=== PATIENT | female | born 1980 | race Caucasian/White ===

== ENCOUNTER 2017-06-24 01:12 | Inpatient (IN) | payer OTHER, SELFPAY ==
[2017-06-24 01:17] VITALS: BMI 25.9
[2017-06-24] MEDS: Oxytocin 10 UNITS/ML Vial IM (01:35)
--- NOTE | 2017-06-24 02:12 | PCM.HP.OB ---
(1) Rh negative state in antepartum period Status: Acute Comment: received rhogam (2) Anemia affecting Status: Acute Qualifiers: (3) Supervision of with history of infertility Status: Acute Comment: DWIGHT 07/02/17 boy BECKY Arita Syd, Chapo (4) Active labor at term Status: Acute History Date of Admission: 06/24/17 Gestational age: 38.6 History of this : 37-year-old at 38 weeks 6 days presents in active labor and delivers precipitously. She has had an uncomplicated other than being AMA and Rh-. She had some mild anemia and was on iron in the . Pertinent Past Medical History: Past medical history: Abnormal Pap, infertility Past surgical history: [place] teeth OB history: 2 previous term vaginal deliveries uncomplicated labs: RPR nonreactive hep B negative blood type Rh- antibody screen negative rubella immune Allergies erythromycin base [Erythromycin Base] Allergy (Verified 06/23/17 15:39) Unknown Penicillins Allergy (Verified 06/23/17 15:39) Unknown Current Medications Acetaminophen (Tylenol) 325 - 650 mg PO Q4H PRN PRN PRN Reason: PAIN OR FEVER >100.4F Al Hydroxide/Mg Hydroxide (Mylanta Ii) 15 - 30 ml PO Q4H PRN PRN PRN Reason: INDIGESTION Citric Acid/Sodium Citrate (Bicitra) 30 ml PO UD PRN Lactated Ringer's () 1,000 mls @ 50 mls/hr IV .Q20H CESARIO Nalbuphine HCl (Nubain) 5 - 10 mg IV Q3H PRN PRN PRN Reason: PAIN (4-10/10) Ondansetron HCl (Zofran) 4 mg IV Q8H PRN PRN PRN Reason: NAUSEA Promethazine HCl (Phenergan (Ll)) 6.25 - 12.5 mg IV Q4H PRN PRN; Protocol PRN Reason: IF NAUSEA PERSISTS Sodium Chloride () 5 - 15 ml IV UD CESARIO Smoking Status: Never smoker Alcohol: None Drug Use: none Number of Fetus(es): 1 - heart tone 140s moderate variability reactive no decelerations category 1 tracing Review of Systems Constitutional: Denies: Chills, Fever, Weight Change HEENT: Denies: Head Aches, Sinus Congestion, Sinus Drainage Cardiovascular: Denies: Chest Pain, Palpitations Respiratory: Denies: Cough, Shortness of breath at rest, Sputum production Gastrointestinal: Reports: Abdominal Pain Gynecological: Reports: Vaginal discharge Physical Exam General: Alert, Oriented x3, No apparent distress Cardiovascular: Regular rate Lungs: Normal air movement Abdomen: Soft, Gravid, Appropriate for Gestational Age Extremities:: No edema Estimated gestational size: Appropriate for gestational size Presentation: Cephalic Cervix Dilation (cm): 9 Station: -1 Effacement (%): 100 Assessment/Plan Active and Suspected Problems (Last Reviewed 06/23/17 @ 15:40 by Tete Brennan) Active labor at term (Acute) 37-year-old presents in active labor and delivers precipitously. GBS negative. Uncomplicated delivery.
--- NOTE | 2017-06-24 02:19 | PCM.OB.VAG ---
(1) Rh negative state in antepartum period Status: Acute Comment: received rhogam (2) Anemia affecting Status: Acute Qualifiers: (3) Supervision of with history of infertility Status: Acute Comment: DWIGHT 07/02/17 boy Syd Pennington, Chapo (4) Active labor at term Status: Acute Vaginal Delivery Maternal Presentation: Active Labor 37-year-old at 38 weeks 6 days presents in active labor and delivers precipitously uncomplicated Amniotic Membrane Rupture Type: Spontaneous at home Amniotic Fluid Description: Clear Final DWIGHT: 07/02/17 Gestational age: 38 Weeks and 6 Days Date of Procedure: 06/24/17 Pre-Operative Diagnosis: In active labor Post-Operative Diagnosis: Same Surgery/ Procedure Performed: Spontaneous Vaginal Delivery Type of Anesthesia: Pudendal block with 1% lidocaine Description of Procedure: Patient presented in active labor and was 9 cm dilated a pudendal block was placed bilaterally by injecting 1 cm medial and posterior to the initial spines bilaterally 10 cc of 1% lidocaine without complication. Patient began pushing and delivered the head in the SHAD presentation. The head was delivered atraumatically . The anterior and posterior shoulders delivered without complication followed by the rest of the and the was placed on the maternal abdomen. Delayed cord clamping was employed for approximately 60 seconds. Cord was clamped and cut and gentle traction was applied to the cord and the placenta delivered spontaneously immediately following it was noted to be intact with three-vessel cord. The perineum and vagina were inspected and noted to have no laceration. EBL was 300 cc. Patient and infant tolerated delivery well. Presentation: SHAD Placental Delivery Description: Spontaneous Placenta Disposition: [facility] Cord Vessel Description: 3 Vessels Cord Entanglement: None Estimated Blood Loss: 300 cc Infant A gender: Male Episiotomy Description: None Laceration: None Medications given after delivery: IV Pitocin
--- NOTE | 2017-06-24 02:28 | PCM.DCVAG ---
Discharge Diet: No Restrictions Discharge Activity: Return to Normal Activity, May not drive while taking narcotic pain medications., May Shower May resume sexual activity in: 4-6 weeks Additional Activity Instructions:: Nothing in the vagina for 4-6 weeks. You may return to work/school in 6 weeks. Call your doctor if your incision/area has: Continuous Slow Oozing, Sudden Increased Bleeding, Increased Pain/ Swelling, Increased Redness, Foul Smelling Discharge Additional Instructions: If you experience any of the following, contact your healthcare provider. Bleeding that soaks a pad every hour for 2 hours Fever 100.4 or higher Unrelieved incision or abdominal pain Swelling, redness, discharge or bleeding from your incision or episiotomy site Your incision begins to separate Problems urinating (including inability to urinate or burning while urinating). Visual changes Severe headache Flu-like symptoms Pain or redness in one of both of your breasts Pain, warmth, tenderness or swelling in your legs, especially the calf area Frequent nausea and vomiting Symptoms of depression or anxiety If you experience any of the following, call 911 or go to the nearest Emergency Room. Chest pain Problems breathing Seizure activity Partial or complete paralysis of a body part, slurred speech, weakness or drooping of the face, or a sudden inability to walk or hold your balance Allergies/Adverse Reactions: Allergies erythromycin base [Erythromycin Base] Allergy (Verified 06/23/17 15:39) Unknown Penicillins Allergy (Verified 06/23/17 15:39) Unknown Medications to take at Discharge Epinephrine [Epi Pen] 0.3 mg IM X1 #2 syringe 01/04/14 vitamin,calcium,qfpsbnpm-lxyt-pcwdp acid tablet 1 tab PO QDAY 05/07/17 cyclobenzaprine 10 mg tablet 10 mg PO TID PRN #30 tab 05/08/17 Please Follow Up With: Saira Edmonds MD - [phone] When: Call to make an appointment with your doctor in 6 weeks. If you had elevated Blood Pressure or 4th degree laceration you will need to be seen in 2 weeks. Primary Care Physician: Don Shultz MD [Primary Care Provider] -
--- NOTE | 2017-06-24 02:29 | DCINST_ITS ---
Discharge Diet: No Restrictions Discharge Activity: Return to Normal Activity, May not drive while taking narcotic pain medications., May Shower May resume sexual activity in: 4-6 weeks Additional Activity Instructions:: Nothing in the vagina for 4-6 weeks. You may return to work/school in 6 weeks. Call your doctor if your incision/area has: Continuous Slow Oozing, Sudden Increased Bleeding, Increased Pain/ Swelling, Increased Redness, Foul Smelling Discharge Additional Instructions: If you experience any of the following, contact your healthcare provider. * Bleeding that soaks a pad every hour for 2 hours * Fever 100.4 or higher * Unrelieved incision or abdominal pain * Swelling, redness, discharge or bleeding from your incision or episiotomy site * Your incision begins to separate * Problems urinating (including inability to urinate or burning while urinating) . * Visual changes * Severe headache * Flu-like symptoms * Pain or redness in one of both of your breasts * Pain, warmth, tenderness or swelling in your legs, especially the calf area * Frequent nausea and vomiting * Symptoms of depression or anxiety If you experience any of the following, call 911 or go to the nearest Emergency Room. * Chest pain * Problems breathing * Seizure activity * Partial or complete paralysis of a body part, slurred speech, weakness or drooping of the face, or a sudden inability to walk or hold your balance Allergies/Adverse Reactions: Allergies erythromycin base [Erythromycin Base] Allergy (Verified 06/23/17 15:39) Unknown Penicillins Allergy (Verified 06/23/17 15:39) Unknown Medications to take at Discharge Epinephrine [Epi Pen] 0.3 mg IM X1 #2 syringe 01/04/14 vitamin,calcium,cekmpcbb-npkx-aofrb acid tablet 1 tab PO QDAY 05/07/17 cyclobenzaprine 10 mg tablet 10 mg PO TID PRN #30 tab 05/08/17 Please Follow Up With: Saira Edmonds MD - [phone] When: Call to make an appointment with your doctor in 6 weeks. If you had elevated Blood Pressure or 4th degree laceration you will need to be seen in 2 weeks. Primary Care Physician: Don Shultz MD [Primary Care Provider] -
[2017-06-24 03:35] VITALS: BP 121/66; PULSE 77; RESP 18; TEMP 37; O2SAT 97
[2017-06-24 07:21] LABS: Hematocrit 35.3 % (37-47); Hemoglobin 11.9 g/dl (12.0-15.0); Mean Corp Hgb Conc 33.7 g/gl (32-36); Mean Corpuscular Hgb 31.6 pg (27.0-32.0); Mean Corpuscular Volume 93.6 fL (81-99); Mean Platelet Vol. 11.7 fl (6.2-12.0); Platelet Count 147 K/mm3 (150-450); Red Blood Count 3.77 M/mm3 (4.2-5.4); White Blood Count 11.7 K/mm3 (4.4-11.0)
[2017-06-24 07:23] LABS: Scan Indicated on CBC? Y/N NO
[2017-06-24 08:34] VITALS: BP 125/71; PULSE 76; RESP 16; TEMP 37.2
[2017-06-24 12:47] VITALS: BP 119/70; PULSE 73; RESP 16; TEMP 37.1; O2SAT 97
[2017-06-24] MEDS: Prenatal Vits Tablet 1 TABLET PO (13:32)
[2017-06-24 16:00] VITALS: BP 116/74; PULSE 78; RESP 16; TEMP 37.2; O2SAT 97
--- NOTE | 2017-06-24 18:48 | PCM.PN.OB ---
Patient Problems: Active and Suspected Problems (Last Reviewed 06/23/17 @ 15:40 by Tete Brennan) Active labor at term (Acute) Subjective: doing well n ocomplaints - Physical Exam General: Alert, Oriented x3 Vital Signs Temp Pulse Resp BP Pulse Ox 98.9 F 78 16 116/74 97 06/24/17 16:00 06/24/17 16:00 06/24/17 16:00 06/24/17 16:00 06/24/17 16:00 Oxygen Delivery Method Room Air Weight: 161 lb Body Mass Index (BMI) 25.9 Laboratory Tests Past 24 Hrs 06/24/17 06/24/17 02:40 02:40 WBC 11.7 H RBC 3.77 L Hgb 11.9 L Hct 35.3 L MCV 93.6 MCH 31.6 MCHC 33.7 RDW 13.0 RDW Differential 44.0 H Plt Count 147 L MPV 11.7 Blood Type O NEGATIVE Antibody Screen NEGATIVE Assessment/Plan Active and Suspected Problems (Last Reviewed 06/23/17 @ 15:40 by Tete Brennan) Active labor at term (Acute) s/p routine care
[2017-06-24 20:23] VITALS: BP 124/70; PULSE 82; RESP 16; TEMP 37.3
[2017-06-24] MEDS: Senna/Docusate Sodium 1 Tablet PO (20:32)
[2017-06-25 01:10] VITALS: BP 116/71; PULSE 67; RESP 16; TEMP 36.8
[2017-06-25 07:39] VITALS: BP 121/76; PULSE 90; RESP 18; TEMP 37.1
[2017-06-25] MEDS: Prenatal Vits Tablet 1 TABLET PO (11:32)
[2017-06-25 13:24] VITALS: BP 115/75; PULSE 80; RESP 18; TEMP 37.3
--- NOTE | 2017-06-25 14:20 | NURSING ---
Mother verified infant ID bands prior to discharge.
== END 2017-06-25 14:25 | disposition home or self-care (01) | DRG 775 ==
LOC: WPOUT 01:13
PROVIDERS: Admitting Provider Obstetrics & Gynecology; Family Provider Family Medicine; PCP Family Medicine; Visit Provider Obstetrics & Gynecology
DX: O62.3 Precipitate labor (principal); O26.899 Other specified pregnancy related conditions, unspecified trimester; O99.02 Anemia complicating childbirth; Z67.91 Unspecified blood type, Rh negative; Z3A.39 39 weeks gestation of pregnancy; Z37.0 Single live birth
CPT/HCPCS: 59025; 59050; 85027; 86850; 86900; 99218; G0378

== ENCOUNTER → 2017-08-12 14:12 | Outpatient (CLI) | payer OTHER, SELFPAY ==
--- NOTE | 2017-08-12 14:14 | HPBI_ITS ---
MAMMOGRAPHY - BILATERAL DIAGNOSTIC REASON FOR EXAM: Female, 37 years old. 2 week history of bilateral axillary lumps. PERTINENT HISTORY: Grandmother with breast cancer. Aunt with breast cancer. TECHNIQUE: Digital bilateral breast zak (3D mammographic acquisition) in the CC and MLO projections. 2-D mediolateral oblique (MLO) and craniocaudad (CC) views of both breasts were obtained. CAD: Full Field Digital Mammography with Computer Added Detection was performed. COMPARISON: None. Baseline examination. FINDINGS: Breast Composition: The breasts are extremely dense, which lowers the sensitivity of mammography. There are no dominant masses or suspicious calcifications. Small bilateral axillary lymph nodes are seen. No other significant abnormalities are identified. BI/DIAG MAMM W/CAD, BILAT IMPRESSION: Negative diagnostic mammogram. With the patient's history of a palpable abnormality in the right axillary region, ultrasound is recommended. ASSESSMENT CATEGORY: BIRADS Category 0: Incomplete. Need additional imaging evaluation. A letter regarding these results will be sent to the patient by the facility within 30 days. Approximately 10% of breast cancers are not detected by mammography. A normal mammogram should not delay biopsy of a clinically suspicious abnormality. Electronically Signed: Castro Lechuga MD at 15:41 EDT Tel [phone], Service support ,
--- NOTE | 2017-08-12 14:17 | US_ITS ---
STUDY: ULTRASOUND BREAST - RIGHT REASON FOR EXAM: Female, 37 years old. Palpable lumps in the right axillary region. TECHNIQUE: Axial and longitudinal images of the RIGHT breast were performed with a high resolution ultrasound transducer. COMPARISON: Comparison is made with prior mammogram done earlier today. FINDINGS: RIGHT Breast: 2 benign-appearing axillary lymph nodes are seen. The largest measures 2.2 sides by 1.3 cm x 0.9 cm. There is also evidence of a 4 mm x 3 mm x 2 mm cyst in the right axilla. US/Breast Limited Unilateral IMPRESSION: Findings suggestive of O2 benign appearing right axillary lymph nodes and a small cyst. ASSESSMENT CATEGORY: BIRADS Category 2: Benign. A letter regarding these results will be sent to the patient by the facility within 30 days. Electronically Signed: Castro Lechuga MD at 8:46 EDT Tel [phone], Service support ,
== END ==
PROVIDERS: Family Provider Family Medicine; PCP Family Medicine; Visit Provider Obstetrics & Gynecology
DX: N63.10 Unspecified lump in the right breast, unspecified quadrant (principal); R22.33 Localized swelling, mass and lump, upper limb, bilateral; Z80.3 Family history of malignant neoplasm of breast
CPT/HCPCS: 76642; 77062; 77066; G0279

== ENCOUNTER → 2018-11-11 16:24 | Outpatient (CLI) | payer BC, SELFPAY ==
--- NOTE | 2018-11-11 16:29 | BI_ITS ---
MAMMOGRAPHY - BILATERAL SCREENING REASON FOR EXAM: Female, 38 years old. Routine annual screening examination. PERTINENT HISTORY: Aunt with breast cancer. TECHNIQUE: Digital bilateral breast henrik (3D mammographic acquisition) in the CC and MLO projections. 2-D mediolateral oblique (MLO) and craniocaudad (CC) views of both breasts were obtained. CAD: Full Field Digital Mammography with Computer Added Detection was performed. COMPARISON: Comparison is made with prior study dated August 12, 2017. FINDINGS: Breast Composition: The breasts are extremely dense, which lowers the sensitivity of mammography. There are no dominant masses or suspicious calcifications. No other significant abnormalities are identified. There has been no significant change since the prior study. BI/SCREEN MAMM (CAD) W/HENRIK BILAT IMPRESSION: Stable bilateral screening mammogram. Yearly follow-up mammogram recommended. (A) ASSESSMENT CATEGORY: BIRADS Category 1: Negative. A letter regarding these results will be sent to the patient by the facility within 30 days. Approximately 10% of breast cancers are not detected by mammography. A normal mammogram should not delay biopsy of a clinically suspicious abnormality. [id number] Electronically Signed: Castro Lechuga, at 8:29 EDT , Service support ,
== END ==
PROVIDERS: Family Provider Family Medicine; PCP Family Medicine; Referring Provider Family Medicine; Visit Provider Family Medicine
DX: Z12.31 Encounter for screening mammogram for malignant neoplasm of breast (principal); R59.0 Localized enlarged lymph nodes
CPT/HCPCS: 77063; 77067

== ENCOUNTER → 2019-11-25 13:59 | Outpatient (CLI) | payer OTHER, SELFPAY ==
--- NOTE | 2019-11-25 14:01 | BI_ITS ---
MAMMOGRAPHY - BILATERAL SCREENING 3-D TOMOSYNTHESIS REASON FOR EXAM: Female, 39 years old. Routine screening PERTINENT HISTORY: fm hx pat aunt 40''s, pat grot gma 60''s, -- 2018 RT AXILLARY LUMPS W/ US DONE=BENIGN LYMPH NODES. TECHNIQUE: 2-D mammograms and 3-D Tomosynthesis of the breast (s) were performed. CAD was performed. COMPARISON: 11/11/2018 FINDINGS: The breast composition is Extremely dense tissue. Scattered benign calcifications are seen. No dense spiculated masses or suspicious microcalcifications are identified. No architectural distortion is identified. There is no skin thickening or retraction. There has been no significant change since the prior study. BI/SCREEN MAMM (CAD) W/HENRIK BILAT IMPRESSION: No mammographic signs of malignancy. Routine yearly mammograms recommended. ASSESSMENT CATEGORY: BIRADS Category 2: Benign. A letter regarding these results will be sent to the patient by the facility within 30 days. FOLLOW UP RECOMMENDATION: Yearly follow up mammogram recommended. (A) Approximately 10% of breast cancers are not detected by mammography. A normal mammogram should not delay biopsy of a clinically suspicious abnormality. Electronically Signed: Wilfred Thompson MD at 14:44 EDT , Service support ,
== END ==
PROVIDERS: PCP Family Medicine; Referring Provider Obstetrics & Gynecology; Visit Provider Obstetrics & Gynecology
DX: Z12.31 Encounter for screening mammogram for malignant neoplasm of breast (principal)
CPT/HCPCS: 77063; 77067

== ENCOUNTER → 2020-03-30 14:36 | Outpatient (CLI) | payer OTHER, SELFPAY ==
[2017-08-05 10:28] VITALS: BMI 22.1
[2020-03-30 18:18] LABS: Cholesterol 187 mg/dL (200); High Density Lipoprotein 99 mg/dL; Triglycerides 46 mg/dL; Very Low Density Lipoprotein 9 mg/dL (5-40)
== END ==
PROVIDERS: PCP Family Medicine; Visit Provider Family Medicine
DX: Z00.00 Encounter for general adult medical examination without abnormal findings (principal); E78.5 Hyperlipidemia, unspecified; R53.83 Other fatigue
CPT/HCPCS: 36415; 80061; 84443

== ENCOUNTER → 2020-12-20 | Outpatient (CLI) | payer OTHER, SELFPAY ==
[2020-12-20 10:05] VITALS: BMI 22.1
[2020-12-24 15:49] LABS: HPV APTIMA, High Risk Negative (Negative)
== END | disposition home or self-care (01) ==
PROVIDERS: PCP Family Medicine; Visit Provider Nurse Practitioner Women's Health
DX: Z12.4 Encounter for screening for malignant neoplasm of cervix (principal)
CPT/HCPCS: 87624; 88175; G0145

== ENCOUNTER → 2021-01-18 17:20 | Outpatient (CLI) | payer OTHER, SELFPAY ==
[2020-12-20 10:05] VITALS: BMI 22.1
--- NOTE | 2021-01-17 15:51 | BI_ITS ---
MAMMOGRAPHY - BILATERAL SCREENING REASON FOR EXAM: Female, 40 years old. Routine annual screening examination. PERTINENT HISTORY: Grandmother with breast cancer. Aunt with breast cancer. TECHNIQUE: Digital bilateral breast henrik (3D mammographic acquisition) in the CC and MLO projections. 2-D mediolateral oblique (MLO) and craniocaudad (CC) views of both breasts were obtained. CAD: Full Field Digital Mammography with Computer Added Detection was performed. COMPARISON: Comparison is made with prior study dated 11/25/2019 and 11/11/2018. FINDINGS: Breast Composition: The breasts are extremely dense, which lowers the sensitivity of mammography. There are no dominant masses or suspicious calcifications. No other significant abnormalities are identified. There has been no significant change since the prior study. BI/SCRN MAMM (CAD)W/HENRIK BILAT IMPRESSION: Stable bilateral screening mammogram. Yearly follow-up mammogram recommended. (A) ASSESSMENT CATEGORY: BIRADS Category 1: Negative. A letter regarding these results will be sent to the patient by the facility within 30 days. Approximately 10% of breast cancers are not detected by mammography. A normal mammogram should not delay biopsy of a clinically suspicious abnormality. [id number] Electronically Signed: Castro Lechuga MD at 8:25 EDT , Service support ,
== END ==
PROVIDERS: PCP Family Medicine; Referring Provider Nurse Practitioner Women's Health; Visit Provider Nurse Practitioner Women's Health
DX: Z12.31 Encounter for screening mammogram for malignant neoplasm of breast (principal); Z80.3 Family history of malignant neoplasm of breast
CPT/HCPCS: 77063; 77067

== ENCOUNTER → 2021-03-22 10:41 | Outpatient (CLI) | payer OTHER, SELFPAY ==
[2021-03-22 13:15] LABS: Prolactin 6.1 ng/mL
== END ==
PROVIDERS: PCP Family Medicine; Referring Provider Obstetrics & Gynecology; Visit Provider Obstetrics & Gynecology
DX: N64.3 Galactorrhea not associated with childbirth (principal); N89.8 Other specified noninflammatory disorders of vagina
CPT/HCPCS: 36415; 84146; 87070; 87205

== ENCOUNTER → 2021-04-08 10:02 | Outpatient (CLI) | payer OTHER, SELFPAY ==
--- NOTE | 2021-04-08 10:04 | US_ITS ---
STUDY: ULTRASOUND BREAST - LEFT REASON FOR EXAM: Female, 41 years old. Nipple discharge in the left breast. TECHNIQUE: Axial and longitudinal images of the LEFT breast were performed with a high resolution ultrasound transducer. # OF IMAGES: 54 COMPARISON: None. FINDINGS: LEFT Breast: The left breast was examined with ultrasound. There is a 1 cm x 1.2 cm x 0.6 cm septated cyst at the 11 o''clock position of the breast at 3 cm from nipple. There is also evidence of a 9 mm x 8 mm x 5 mm cyst in the retroareolar areolar region of the left breast. Dilated retroareolar ducts. US/Breast Complete Unilateral IMPRESSION: There are 2 small cysts as described. Dilated retroareolar ducts. ASSESSMENT CATEGORY: BIRADS Category 2: Benign. A letter regarding these results will be sent to the patient by the facility within 30 days. Electronically Signed: Castro Lechuga MD at 11:06 EST , Service support ,
== END ==
PROVIDERS: PCP Family Medicine; Referring Provider Obstetrics & Gynecology; Visit Provider Obstetrics & Gynecology
DX: N64.3 Galactorrhea not associated with childbirth (principal)
CPT/HCPCS: 76641

== ENCOUNTER 2021-05-09 11:53 | Day surgery (SDC) | payer OTHER, SELFPAY ==
[2021-05-09] VITALS (8 sets, daily range): BP systolic 90–116; BP diastolic 62–72; PULSE 70–83; RESP 16; TEMP 36.2–36.9; O2SAT 98–100; BMI 20.8
--- NOTE | 2021-05-09 | BRBX_PTH ---
PATIENT: JULIO OG LOC: [facility] [place][id number] AGE/SX: 41/F ROOM: RE05/09/[address]: Dr. Ranjit Molina MD : 1980 BED: DIS: 05/09/2021 SPEC #: [id number] RECD: 05/09/21 15:39 STATUS: IVELISSE RERoni #: [id number] MIGUEL ANGEL: 05/09/21 00:[address]: Ranjit Molina DEPT: SURGICAL PATHOLOGY RECD BY: Chapo Queen ENTERED: 05/10/21 08:31 SP TYPE: BREAST BX OTHR DR: Dr. Mickie Rossi MD Tissues: Left breast, NOS Procedures: Surgery Specimen Level IV HEADER OPERATION: Left breast ductal exploration with excisional biopsy PRE-OP DIAGNOSIS: Left nipple discharge TISSUE SUBMITTED: Excisional left breast biopsy, suture richardson area directly beneath nipple MICROSCOPIC DIAGNOSIS Left breast, excisional biopsy: Intraductal papilloma. Focal intraductal hyperplasia without atypia. Fibrocystic change. No evidence of malignancy. See comment. AM:tyler 05/13/2021 COMMENT Immunohistochemistry ([id number]) supports the above diagnosis. MICROSCOPIC DESCRIPTION Slides are reviewed. GROSS DESCRIPTION Received in fixative is one container labeled with the patient's name and designated excisional left breast biopsy. The specimen consists of an irregular fragment of rubbery, white-yellow tissue measuring 3 x 2 x 1.3 cm. A suture is present and designates ?richardson area directly beneath nipple.? The surface with suture is inked in black ink. The remainder of the specimen is inked in red ink. Serial sections reveal indurated, cut surfaces without distinct mass. The specimen is serially sectioned and totally submitted in six cassettes. / AM:tyler 05/10/21 TC:1 CPT:
--- NOTE | 2021-05-09 | IMM_PTH ---
PATIENT: JULIO OG LOC: [facility] – [place] U#:[id number] AGE/SX: 41/F ROOM: RE05/09/[address]: Dr. Ranjit Molina MD : 1980 BED: DIS: 05/09/2021 SPEC #: [id number] RECD: 05/13/21 14:07 STATUS: IVELISSE REQ #: [id number] MIGUEL ANGEL: 05/09/21 00:[address]: Ranjit Molina DEPT: IMMUNOHISTOCHEMISTRY RECD BY: Caryl Carmen ENTERED: 05/13/21 14:07 SP TYPE: IMMUNO OTHR DR: Dr. Mickie Rossi MD Tissues: Left breast, NOS Procedures: SMA (add) Calponin-1(initial) P40 (add) PHYSICIAN & INSTITUTION [place] [id number] SPECIMEN INFORMATION: Tissue Source: Left breast, excisional biopsy Clinical Info: Left nipple discharge Specimen Number: [id number] #1 CPT code: 44013, 98177 x2 METHODOLOGY: Deparaffinized sections of prefer/formalin-fixed tissue or PAP/DQ stained slides are incubated with monoclonal/polyclonal antibodies/oligonucleotide probes. Localization is made via biotin free immunoperoxidase method. Appropriate controls are performed and reacted as expected. Results on target cell population are indicated in the following table: RESULTS: ANTIBODY / CLONE RESULT Block 1 Calponin-1 ([id number]) positive Actin (1A4) positive P40 (BC28) positive These tests were developed and their performance characteristics determined by [facility]. They may not have been cleared or approved by the U.S. Food and Drug Administration. The FDA has determined that such clearance or approval is not necessary. The above immunohistochemical/dualISH markers are ordered and reviewed by the Pathologist. INTERPRETATION: Left breast, excisional biopsy: Consistent with intraductal papilloma. AM:tyler 05/14/2021
[2021-05-09 12:20] LABS: Internal QC Validated? YES +Cl - CLEAR BKGD; Pregnancy, Urine Negative Negative
[2021-05-09] MEDS: Lactated Ringers 1,000 ML 15 ML IV (12:26)
--- NOTE | 2021-05-09 14:16 | PCM.HP.BLA ---
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 Is patient in pain?: No Allergies erythromycin base [Erythromycin Base] Allergy (Verified 04/23/21 14:06) pt states sun sensitivity Medications epinephrine 0.3 mg IM X1 #2 syringe 01/04/14 [Rx Confirmed 04/23/21] Saccharomyces boulardii 250 mg capsule 250 mg PO BID 12/20/20 [History Confirmed 04/23/21] cholecalciferol (vitamin D3) 50 mcg (2,000 unit) capsule 50 mcg PO DAILY 12/20/20 [History Confirmed 04/23/21] magnesium 30 mg tablet 30 mg PO DAILY 12/20/20 [History Confirmed 04/23/21] omega-3 fatty acids 1,000 mg capsule 1,000 mg PO DAILY 12/20/20 [History Confirmed 04/23/21] [facility] Medical History Bone fracture History of abnormal cervical Pap smear Vaginal discharge Surgical History History of wisdom tooth extraction, class I edentulism Family History Mother Breast cancer Ovarian cancer Aunt Breast cancer Grandmother Breast cancer Social History Smoking Status: Never smoker alcohol intake: never substance use type: does not use seatbelt use: always additional social history: -Chapo HPI HPI HPI: JUILO OG, is a 41 F who presents to the office today for surgical consultation regarding galactorrhea. The patient is referred by Dr. Saira Edmonds and a written copy of my surgical consult and recommendations will be returned to her. The patient is complaining of a milky to greenish-brown greasy left nipple discharge. Prolactin level was normal at 6.1. 41-year-old female. G4, . Menarche was at age 14 first child born at she was 31. She did breast-feed. No previous breast biopsies. She is not on any estrogen medication. Family history is notable for paternal great grandmother and aunt who had breast cancer. With the patient's second child she states that she had multiple episodes of mastitis bilaterally. She did not require extensive antibiotic treatment she was always able to manipulate things out with pumping and resolving it on her own. 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 She also is an active runner and just finished up with a marathon. April 08, 2021 STUDY: ULTRASOUND BREAST - LEFT REASON FOR EXAM: Female, 41 years old. Nipple discharge in the left breast. TECHNIQUE: Axial and longitudinal images of the LEFT breast were performed with a high resolution ultrasound transducer. # OF IMAGES: 54 COMPARISON: None. FINDINGS: LEFT Breast: The left breast was examined with ultrasound. There is a 1 cm x 1.2 cm x 0.6 cm septated cyst at the 11 o''clock position of the breast at 3 cm from nipple. There is also evidence of a 9 mm x 8 mm x 5 mm cyst in the retroareolar areolar region of the left breast. Dilated retroareolar ducts. US/Breast Complete Unilateral IMPRESSION: There are 2 small cysts as described. Dilated retroareolar ducts. ASSESSMENT CATEGORY: BIRADS Category 2: Benign. A letter regarding these results will be sent to the patient by the facility within 30 days. Electronically Signed: Castro Lechuga MD at 11:06 EST , Service support , January 17, 2021 MAMMOGRAPHY - BILATERAL SCREENING REASON FOR EXAM: Female, 40 years old. Routine annual screening examination. PERTINENT HISTORY: Grandmother with breast cancer. Aunt with breast cancer. TECHNIQUE: Digital bilateral breast henrik (3D mammographic acquisition) in the CC and MLO projections. 2-D mediolateral oblique (MLO) and craniocaudad (CC) views of both breasts were obtained. CAD: Full Field Digital Mammography with Computer Added Detection was performed. COMPARISON: Comparison is made with prior study dated 11/25/2019 and 11/11/2018. FINDINGS: Breast Composition: The breasts are extremely dense, which lowers the sensitivity of mammography. There are no dominant masses or suspicious calcifications. No other significant abnormalities are identified. There has been no significant change since the prior study. BI/SCRN MAMM (CAD)W/HENRIK BILAT IMPRESSION: Stable bilateral screening mammogram. Yearly follow-up mammogram recommended. (A) ASSESSMENT CATEGORY: BIRADS Category 1: Negative. A letter regarding these results will be sent to the patient by the facility within 30 days. Approximately 10% of breast cancers are not detected by mammography. A normal mammogram should not delay biopsy of a clinically suspicious abnormality. [id number] Electronically Signed: Castro Lechuga MD at 8:25 EDT , Service support , ROS General General: No weight change, appetite, fatigue, colon cancer, breast cancer or weakness HEENT HEENT: No difficulty swallowing, eye injury, eye surgery, swollen glands or hoarseness Endo Endocrine: No thyroid disease, diabetes mellitus, thyroid cancer, Hair loss, heat intolerance or cold intolerance Skin Skin: No rash or changing moles Breast Breast: Yes nipple discharge and abnormal US; No left breast lump, right breast lump, breast pain, abnormal mammogram or breast enlargement Additional Details: US 04/08 showed 2 small cysts and dilated retroareolar ducts Musc Musculoskeletal: No back problems, arthritis, rheumatoid arthritis, gout or joint pain Cardio Cardiovascular: No murmur, pacemaker, heart disease, atrial fibrillation, high blood pressure, heart attack, heart stent, palpitations, shortness of breat with exertion or chest pain Psych Psychiatric: No depression, anxiety or hearing voices Resp Respiratory: No shortness of breath, No sleep apnea, No cough, No COPD, No asthma, No emphysema and No wheezing Gastro Gastrointestinal: No abdominal pain, No nausea or vomiting, No diarrhea, No constipation, No blood in stool, No acid reflux, No hemorrhoids, No ulcers, No gallbladder problem and No black,tarry stools Tacho Hematologic: No blood thinners, No blood disorders, No bleeding, No anemia and No blood clots Neuro Neurologic: No system reviewed and no additional complaints, except as documented, No as per HPI, No abnormal gait, No abnormal hearing, No abnormal movements, No abnormal speech, No behavioral changes, No burning sensations, No confusion, No convulsions, No disequilibrium, No dizziness, No localized weakness, No frequent falls, No headache(s), No lack of coordination, No loss of vision, No memory loss, No numbness, No other visual disturbances, No radicular pain, No restless legs, No sensory deficit, No syncope, Yes tingling, No tremor(s), No weakness and No other Exam Const General: cooperative, healthy appearing, comfortable and no acute distress Nutritional Appearance: average body habitus Orientation: alert, awake and oriented x3 HENMT Head: normal to inspection Eyes General: appearance normal, both eyes and all related structures Chest Other: Right breast: No focal mass. No nipple discharge. No axillary or clavicular adenopathy Left breast: Evidence of some slight dry material at the center of the nipple. No focal mass. No axillary clavicular adenopathy. A late green discharge is expressible almost from the very center of the nipple Resp Effort & Inspection: normal respiratory effort Auscultation: clear to auscultation bilaterally Cardio Rate: regular rate Rhythm: regular rhythm GI Palpation: soft Neuro General: patient alert and patient awake Extrem General: no calf tenderness Assessment and Plan Assessment and Plan (1) Nipple discharge in female: Status: Acute Plan - Dr. Ranjit Molina MD: Left nipple discharge. Simple cyst on ultrasound. Dilated ducts. No intraductal papilloma clearly identified on ultrasound. On clinical exam however there is obvious discharge. By patient report this is been ongoing for 5 months. I recommended ductal expiration with excision left breast. I have discussed the technique, benefit, risk, alternatives. She has had an opportunity to ask and have questions answered. As noted she is a schoolteacher. She has upcoming responsibilities including another run that she would like to participate in. We will schedule and proceed at the time of her convenience. I appreciate the opportunity of assisting with her surgical care Copy: Dr. Saira Edmonds and Dr. Mickie Molina M.D., F.A.C.S. I have re-examined the patient. There are no clinical changes since date of exam.
--- NOTE | 2021-05-09 14:17 | EX.PCM.DISCH ---
Discharge Instructions Procedure Breast Surgery Diet Discharge Diet: No restrictions Activity Discharge Activity: May Not Drive (for 2-3 days or while taking narcotic pain meds.) May shower in (days): 1 Lifting Restrictions: 10 pounds for 1 week. Dressing / Incision Call your doctor if your incision/area has: Continuous Slow Oozing and Sudden Increased Bleeding Call your doctor if you observe: Fever of 101 or Higher Suture Line Care: Avoid Pulling/Pushing and Avoid Pinching/Bending Remove Dressing in: 1 day Additional Dressing/Incision Instructions:: Remove bulky dressing tomorrow. May leave any opsite dressing for 3-4 days. Keep dressing in place until your follow-up appointment. Follow Up Care Test Results: Test results from this visit will be discussed in further detail at your follow-up appointment, if applicable. Discharge Plan Admission Attending Provider: Ranjit Molina Primary Care Provider: Mickie Rossi Discharge Orders/Prescriptions Prescriptions: No Action cholecalciferol (vitamin D3) 50 mcg (2,000 unit) capsule 50 mcg PO DAILY RF: 0 omega-3 fatty acids 1,000 mg capsule 1,000 mg PO DAILY RF: 0 magnesium 30 mg tablet 30 mg PO DAILY RF: 0 Saccharomyces boulardii [Daily Probiotic (S. boulardii)] 250 mg capsule 250 mg PO BID RF: 0 diphenhydramine HCl [Benadryl Allergy] 25 mg Tablet 25 mg PO DAILY PRN PRN (Reason: bee allergy) RF: 0
[2021-05-09] MEDS: Lidocaine 1% (30 ml sdv) 30 ML Vial (14:54)
[2021-05-09] MEDS: Lidocaine 0.5% (50 ml) 50 ML Vial (14:54)
[2021-05-09] MEDS: Bupivacaine Mpf 0.5% 30 ML VIAL (14:54)
--- NOTE | 2021-05-09 15:21 | PCM.OPRPT ---
Problems Associated Problem List Diagnoses (1) Nipple discharge in female: Report of Operation Date of Procedure: 05/09/21 Pre-Operative Diagnosis: Left breast nipple discharge Post-Operative Diagnosis: Same Surgery/Procedure Performed:: Ductal expiration with excisional biopsy left breast Description of Surgical Findings:: Timeout informed consent was obtained. 41-year-old female was taken to the operating placed supine on the table monitored anesthesia care was utilized. 17 cc of 1% lidocaine mixed 50-50 with 0.5% Marcaine and 21 cc of 0.5% lidocaine was used as local anesthetic. The left breast was sterilely prepped and draped and then half percent lidocaine was instilled more deeply in the breast and then the admixture more superficially. The nipple was manipulated and up the 2 o'clock position a brownish fluid emanated there from a 00 lacrimal duct probe was inserted a curvilinear incision was made from 2:00 to 5:00 retroareolar dissection was performed sharply and with electrocautery the tracking of the probe was identified and then a cylinder of tissue was excised deeper in the breast following along the tracking of the lacrimal duct probe. The specimen was completely excised and a silk suture was placed at the edge of it that was beneath the nipple. The dermal compression of the nipple ductal complex was closed with a 3-0 Vicryl suture. Hemostasis was attained electrocautery and then the deep breast tissue was approximated with interrupted 3-0 Vicryl to reapproximate some of the breast. Subcutaneous tissue approximated the same. Skin edges approximated interrupted 4-0 Monocryl subdermal stitches. Steri-Strips Telfa OpSite dressing followed by a large bulky pressure dressing. Sponge and instrument and needle counts were reported to the surgeon to be correct. Specimen ductal expiration excisional left breast biopsy. Blood loss minimal. Drains none. The patient was taken to the recovery area in satisfactory addition without apparent complication Ranjit Molina M.D., F.A.C.S. Surgeon: Ranjit Molina
== END 2021-05-09 16:43 | disposition home or self-care (01) ==
LOC: SDC 11:54 → AC 11:55
PROVIDERS: Anesthesiology; PCP Family Medicine; Referring Provider Surgery; Visit Provider Surgery
PROC: (CPT 19120; principal; 2021-05-09 13:45)
DX: D24.2 Benign neoplasm of left breast (principal); N62 Hypertrophy of breast; N64.52 Nipple discharge; N64.3 Galactorrhea not associated with childbirth; Z20.822 Contact with and (suspected) exposure to COVID-19; Z79.899 Other long term (current) drug therapy; Z86.16 Personal history of COVID-19; Z80.3 Family history of malignant neoplasm of breast
CPT/HCPCS: 00400; 19120; 81025; 87426; 88305; 88341; 88342; C9803; J7120

== ENCOUNTER → 2022-03-06 | Outpatient (CLI) | payer OTHER, SELFPAY ==
--- NOTE | 2022-03-06 07:48 | BI_ITS ---
MAMMOGRAPHY - BILATERAL SCREENING REASON FOR EXAM: Female, 42 years old. Routine annual screening examination. PERTINENT HISTORY: Aunt with breast cancer. Great grandmother with breast cancer. TECHNIQUE: Digital bilateral breast henrik (3D mammographic acquisition) in the CC and MLO projections. 2-D mediolateral oblique (MLO) and craniocaudad (CC) views of both breasts were obtained. CAD: Full Field Digital Mammography with Computer Added Detection was performed. COMPARISON: Comparison is made with prior study dated 01/17/2021 and 11/25/2019. FINDINGS: Breast Composition: The breasts are extremely dense, which lowers the sensitivity of mammography. Possible 1 cm x 1.7 cm well-defined nodule in the retroareolar region of the left breast correlation with ultrasound is recommended. No other significant abnormalities are identified. BI/SCRN MAMM (CAD)W/HENRIK BILAT IMPRESSION: Possible 1 cm x 1.7 cm well-defined nodule in the retroareolar region of the left breast. Correlation with ultrasound is recommended. ASSESSMENT CATEGORY: BIRADS Category 0: Incomplete. Need additional imaging evaluation. A letter regarding these results will be sent to the patient by the facility within 30 days. Approximately 10% of breast cancers are not detected by mammography. A normal mammogram should not delay biopsy of a clinically suspicious abnormality. [id number] Electronically Signed: Castro Lechuga MD at 9:28 EDT ,
== END | disposition home or self-care (01) ==
LOC: OPBI 07:47
PROVIDERS: PCP Family Medicine; Visit Provider Obstetrics & Gynecology
DX: Z12.31 Encounter for screening mammogram for malignant neoplasm of breast (principal)
CPT/HCPCS: 77063; 77067

== ENCOUNTER → 2022-03-10 | Outpatient (CLI) | payer OTHER, SELFPAY ==
--- NOTE | 2022-03-10 07:51 | US_ITS ---
STUDY: ULTRASOUND BREAST - LEFT REASON FOR EXAM: Female, 42 years old. Abnormal screening mammogram. TECHNIQUE: Axial and longitudinal images of the LEFT breast were performed with a high resolution ultrasound transducer. # OF IMAGES: 29 COMPARISON: Comparison is made with prior mammogram dated 03/06/2022 and 01/17/2021. Comparison is also made with prior sonogram of the left breast dated 04/08/2020 FINDINGS: LEFT Breast: Once again, multiple small cysts are seen. The largest cyst is at the 6 o''clock position in the breast at 2 cm from nipple. This measures 1.2 cm x 1.1 cm by 0.7 cm. US/Breast Limited Unilateral IMPRESSION: Multiple small cysts. ASSESSMENT CATEGORY: BIRADS Category 2: Benign. A letter regarding these results will be sent to the patient by the facility within 30 days. Electronically Signed: Castro Lechuga MD at 9:18 EDT ,
== END | disposition home or self-care (01) ==
LOC: OPUS 07:48
PROVIDERS: PCP Family Medicine; Visit Provider Obstetrics & Gynecology
DX: R92.8 Other abnormal and inconclusive findings on diagnostic imaging of breast (principal)
CPT/HCPCS: 76642

== ENCOUNTER → 2023-03-12 | Outpatient (CLI) | payer OTHER, SELFPAY ==
--- NOTE | 2023-03-12 12:53 | BI_ITS ---
MAMMOGRAPHY - BILATERAL SCREENING REASON FOR EXAM: Female, 43 years old. Routine annual screening examination. PERTINENT HISTORY: Grandmother with breast cancer. Aunt with breast cancer. Prior papilloma resection in the left breast. TECHNIQUE: Digital bilateral breast henrik (3D mammographic acquisition) in the CC and MLO projections. 2-D mediolateral oblique (MLO) and craniocaudad (CC) views of both breasts were obtained. CAD: Full Field Digital Mammography with Computer Added Detection was performed. COMPARISON: Comparison is made with prior study March 06, 2022 and January 17, 2021. FINDINGS: Breast Composition: The breasts are extremely dense, which lowers the sensitivity of mammography. Persistent 1.4 cm x 1.6 cm well-defined nodule in the inferior central aspect of the left breast. Prior sonogram demonstrated this to be a cyst. This has increased slightly in size as compared to prior study. No other significant abnormalities are identified. BI/SCRN MAMM (CAD)W/HENRIK BILAT IMPRESSION: Stable bilateral screening mammogram. Yearly follow-up mammogram recommended. (A) ASSESSMENT CATEGORY: BIRADS Category 2: Benign. A letter regarding these results will be sent to the patient by the facility within 30 days. Approximately 10% of breast cancers are not detected by mammography. A normal mammogram should not delay biopsy of a clinically suspicious abnormality. [id number] Electronically Signed: Castro Lechuga MD at 14:43 EDT ,
== END | disposition home or self-care (01) ==
LOC: OPBI 12:53
PROVIDERS: PCP Family Medicine; Referring Provider Obstetrics & Gynecology; Visit Provider Obstetrics & Gynecology
DX: Z12.31 Encounter for screening mammogram for malignant neoplasm of breast (principal)
CPT/HCPCS: 77063; 77067

== ENCOUNTER → 2023-11-11 | Outpatient (CLI) | payer OTHER, SELFPAY ==
[2023-11-11 12:39] LABS: Absolute Lymphocyte Count 1.01 X10^3/uL (0.83-4.51); Absolute Neutrophil Count 2.6 X10^3/uL (2.0-7.7); Basophil# 0.06 X10^3/uL; Basophil% 1.5 % (0-1); Eosinophil# 0.17 X10^3/uL; Eosinophils% 4.1 % (0-5); Hematocrit 36.2 % (37-47); Hemoglobin 11.8 g/dL (12.0-15.0); Lymphocyte # 1.01 X10^3/ul (0.83-4.51); Lymphocyte % 24.6 % (19-41); Mean Corp Hgb Conc 32.6 g/dL (32-36); Mean Corpuscular Hgb 29.9 pg (27.0-32.0); Mean Corpuscular Volume 91.9 fL (81-99); Monocyte# 0.21 X10^3/uL; Monocyte% 5.1 % (0-10); NRBC Flagged by Analyzer 0 % (0-5); Neutrophil # 2.64 X10^3/uL (2.7-7.7); Neutrophil % 64.2 % (47-70); Platelet Count 193 K/mm3 (150-450); RBC Distribution Width CV 12.3 % (11.6-14.6); RBC Distribution Width SD 41.3 fl (35.1-43.9); Red Blood Count 3.94 M/mm3 (4.2-5.4); White Blood Count 4.1 K/mm3 (4.4-11.0)
[2023-11-11 13:50] LABS: ALB/GLOB Ratio 1.1 RATIO (0.9-2.4); AST(SGOT) 27 U/L (15-37); Alanine Aminotransfer ALT/SGPT 29 U/L (13-56); Albumin, Serum 3.5 g/dL (3.2-5.0); Alkaline Phosphatase 47 U/L (45-117); Anion Gap 4 (5-15); BUN 13 mg/dL (7-18); BUN/Creat Ratio 15.2 RATIO (10-20); Chloride 107 mmol/L (98-107); Cholesterol 149 mg/dL (200); Creatinine, Serum 0.85 mg/dL (0.55-1.02); EST Glomerular Filtration Rate 78 mL/min (>60); Est Glom Filt Rate - Afr Amer 94 mL/min (>60); Globulin 3.3 g/dL (2.2-4.2); Glucose 91 mg/dL (74-106); High Density Lipoprotein 75 mg/dL; Potassium 4.2 mmol/L (3.5-5.1); Protein, Total 6.8 g/dL (6.4-8.2); Sodium Level 137 mmol/L (136-145); Triglycerides 72 mg/dL; Very Low Density Lipoprotein 14 mg/dL (5-40)
== END | disposition home or self-care (01) ==
LOC: BFHLAB 10:54
PROVIDERS: PCP Family Medicine; Referring Provider Family Medicine; Visit Provider Family Medicine
DX: Z00.00 Encounter for general adult medical examination without abnormal findings (principal); I73.00 Raynaud's syndrome without gangrene
CPT/HCPCS: 36415; 80053; 80061; 85025

== ENCOUNTER → 2023-11-13 | Outpatient (CLI) | payer OTHER, SELFPAY ==
[2023-11-13 10:34] LABS: Erythrocyte Sedimentation Rate < 1 mm/hr (0-30)
[2023-11-13 10:50] LABS: Vitamin B12 479 pg/mL (211-911)
[2023-11-13 12:21] LABS: CRP < 2.90 mg/L (0.0-3.0); Ferritin 147 ng/mL (8-252); Rheumatoid Factor < 10.0 IU/mL (<15)
[2023-11-15 14:07] LABS: ANTINUCLEAR ANTIBODIES DIRECT Negative (Negative)
[2023-11-19 01:08] LABS: CCP IgG Antibodies 14 units (0-19); Lyme IgG P18 Ab Absent (.); Lyme IgG P23 Ab Absent (.); Lyme IgG P28 Ab Absent (.); Lyme IgG P30 Ab Absent (.); Lyme IgG P39 Ab Absent (.); Lyme IgG P41 Ab Present (.); Lyme IgG P45 Ab Absent (.); Lyme IgG P58 Ab Absent (.); Lyme IgG P66 Ab Absent (.); Lyme IgG P93 Ab Absent (.); Lyme IgG WB Interpretation Negative (.); Lyme IgM P23 Ab Absent (.); Lyme IgM P39 Ab Absent (.); Lyme IgM P41 Ab Absent (.); Lyme IgM WB Interpretation Negative (.)
== END | disposition home or self-care (01) ==
LOC: MTLAB 09:13
PROVIDERS: PCP Family Medicine; Referring Provider Family Medicine; Visit Provider Family Medicine
DX: Z00.00 Encounter for general adult medical examination without abnormal findings (principal); D64.9 Anemia, unspecified; M25.50 Pain in unspecified joint
CPT/HCPCS: 36415; 82607; 82728; 82746; 85652; 86038; 86140; 86200; 86431; 86617

== ENCOUNTER → 2024-02-15 | Outpatient (CLI) | payer OTHER, SELFPAY ==
--- NOTE | 2024-02-15 09:04 | US_ITS ---
STUDY: ULTRASOUND BREAST - LEFT REASON FOR EXAM: Female, 43 years old. Palpable lump left breast. TECHNIQUE: Axial and longitudinal images of the LEFT breast were performed with a high resolution ultrasound transducer. # OF IMAGES: 17 COMPARISON: Comparison is made with prior mammogram dated February 15, 2024 and prior sonogram of the left breast dated March 10, 2022. FINDINGS: LEFT Breast: The mammographic abnormality corresponds to a 1.6 cm x 1.6 cm x 1 cm complex cyst at the 7:00 position of the breast at 3 cm from the nipple. Tissue diagnosis is recommended. US/Breast Limited Unilateral IMPRESSION: The mammographic abnormality corresponds to 1.6 x 1.6 x 1 cm complex cyst at the 7:00 position of the breast at 3 cm from the nipple. Tissue diagnosis is recommended. ASSESSMENT CATEGORY: BIRADS Category 4: Suspicious - Biopsy Should Be Considered. A letter regarding these results will be sent to the patient by the facility within 30 days. Electronically Signed: Castro Lechuga MD at 12:22 EDT ,
--- NOTE | 2024-02-15 09:04 | BI_ITS ---
MAMMOGRAPHY - BILATERAL DIAGNOSTIC REASON FOR EXAM: Female, 43 years old. Palpable lump in the left breast. PERTINENT HISTORY: Grandmother with breast cancer. Aunt with breast cancer. History of prior left excisional breast biopsy. TECHNIQUE: Digital bilateral breast zak (3D mammographic acquisition) in the CC and MLO projections. 2-D mediolateral oblique (MLO) and craniocaudad (CC) views of both breasts were obtained. CAD: Full Field Digital Mammography with Computer Added Detection was performed. COMPARISON: Comparison is made with prior study March 12, 2023 and March 06, 2022. FINDINGS: Breast Composition: The breasts are extremely dense, which lowers the sensitivity of mammography. The palpable lump corresponds to 1.8 cm x 2 cm well-defined nodule in the inferior medial aspect of the left breast. Correlation with ultrasound is recommended. No other significant abnormalities are identified. BI/DIAG MAMM W/CAD, BILAT IMPRESSION: The palpable lump corresponds to a 1.8 cm x 2 cm well-defined nodule in the inferior medial aspect of the left breast. Correlation with ultrasound is recommended. ASSESSMENT CATEGORY: BIRADS Category 0: Incomplete. Need additional imaging evaluation. A letter regarding these results will be sent to the patient by the facility within 30 days. Approximately 10% of breast cancers are not detected by mammography. A normal mammogram should not delay biopsy of a clinically suspicious abnormality. Electronically Signed: Castro Lechuga MD at 9:55 EDT ,
== END | disposition home or self-care (01) ==
PROVIDERS: PCP Family Medicine; Referring Provider Nurse Practitioner Women's Health; Visit Provider Nurse Practitioner Women's Health
DX: N63.20 Unspecified lump in the left breast, unspecified quadrant (principal)
CPT/HCPCS: 76642; 77062; 77066; G0279

== ENCOUNTER → 2024-02-19 | Outpatient (CLI) | payer OTHER, SELFPAY ==
--- NOTE | 2024-02-19 | FLU_PTH ---
PATIENT: JULIO OG LOC: [facility] #:[id number] AGE/SX: 43/F ROOM: RE02/19/[address]: Dr. Rahul Corona MD : 1980 BED: DIS: 02/19/2024 SPEC #: [id number] RECD: 02/19/24 15:43 STATUS: IVELISSE RERoni #: [id number] MIGUEL ANGEL: 02/19/24 00:[address]: Rahul Corona DEPT: CYTOLOGY RECD BY: Lorenzo Biggs ENTERED: 02/22/24 11:50 SP TYPE: Fluid OTHR DR: Dr. Mickie Rossi MD Tissues: CYST Procedures: Special Stain Group II Surgery Specimen Level III Surgery Specimen Level IV Cytospin Fluid HEADER OPERATION: Fluid cyst of left breast PRE-OP DIAGNOSIS: Solitary cyst of left breast TISSUE SUBMITTED: Cyst of left breast DIAGNOSIS CYTOLOGY Fine needle aspiration, cyst of left breast (cytospins and cellblock): Negative for malignant cells. AM. 02/23/2024 CYTOLOGY STUDY Slides are reviewed. CYTOLOGY GROSS Received is 1 ml of milky-white fluid labeled with the patient's name and and designated per the requisition as Cyst of left breast. Submitted for cytology preparation including cell block. Mr 02/22/2024 TC:5 CPT: 36620,71524
== END | disposition home or self-care (01) ==
LOC: LABSPEC 15:50
PROVIDERS: PCP Family Medicine; Referring Provider Surgery; Visit Provider Surgery
DX: N60.02 Solitary cyst of left breast (principal)
CPT/HCPCS: 88108; 88304; 88305; 88313

== ENCOUNTER 2024-02-29 08:43 | Day surgery (SDC) | payer OTHER, SELFPAY ==
[2024-02-29] VITALS (8 sets, daily range): BP systolic 89–106; BP diastolic 58–76; PULSE 57–74; RESP 12–18; TEMP 36.3–36.8; O2SAT 98–100; BMI 21.4
--- NOTE | 2024-02-29 08:59 | H&P.OPEN ---
HPI - General General Date of Service: 02/29/24 HPI Narrative JULIO OG, is a 43 F who presents for EGD and colonoscopy due to anemia. Patient still has bowel movements daily denies any chronic abdominal pain/nausea/vomiting/reflux. Patient is no changes since office visit. office visit 11/27/23 HPI HPI: 43-year-old female due to anemia for possible endoscopy. Patient's hemoglobin is 11.8?only other records we have at our hospital are from 2017 were 10.9 and 11.9 in 2018. Patient's never had previous colonoscopy or EGD previously. Patient denies any family history of colon cancer. Patient has bowel movements daily denies any blood. Patient denies any nausea/vomiting/reflux. [facility] Medical History Abnormal ultrasound of breast Abnormal mammogram Anemia History of COVID-19 Umbilical hernia Non-smoker History of abnormal cervical Pap smear Bone fracture Home Medications ?Medication ?Instructions ?Recorded ?Last Taken ?Type NK 02/19/24 Unknown History Allergy/AdvReac Type Severity Reaction Status Date / Time bee venom protein (honey Allergy Intermediate PT UNSURE Verified 02/29/24 09:14 bee) (bees) OF REACTION erythromycin base Allergy pt states Verified 02/29/24 09:14 (Erythromycin Base) sun sensitivity Family History Mother No problems noted. Aunt Breast cancer Grandmother Breast cancer Surgical History History of wisdom tooth extraction S/P LASIK surgery Hx of breast surgery (~05/2021) History of wisdom tooth extraction, class I edentulism Social History Smoking Status: Never smoker alcohol intake: never substance use type: does not use seatbelt use: always additional social history: -Chapo Past Medical/Surgical History Planned Operation Planned Operative Procedure(s): EGD, CSCOPE Previous Hospitalizations/Surgeries HX Hospitalizations: No Any Problems With Anesthesia: No You/Your Family Experience Fever (Hyperthermia) With Anes: No Cholinesterase deficiency: No Cardiovascular Hx Hypertension: No Respiratory Hx Sleep Apnea: No CPAP: No Hx Respiratory Tract Infection/Cold (presently): No Do You Snore Loudly (louder than talking or can be heard): No Do You Often Feel Tired/ Fatigued/ Sleepy Dring Daytime?: No Has Anyone Observed You Stop Breathing During Sleep?: No Result (for STOP score): Negative Hx Smoking: No Smoking Status: Never smoker Neurological Does patient have nerve stimulator: No Reproduction : No Miscellaneous Recent Exposure to Contagious Disease: No Allergies bee venom protein (honey bee) (bees) Allergy (Intermediate, Verified 02/29/24 09:14) PT UNSURE OF REACTION erythromycin base (Erythromycin Base) Allergy (Verified 02/29/24 09:14) pt states sun sensitivity Discharge Is Pt Admitted From a Senior Living, or a Half-Way: No After D/C, Where Do you Plan to Go: Return Home Physical Exam Const alert, oriented x3 and no apparent distress HEENT normocephalic and head/scalp atraumatic Resp normal respiratory effort Cardio regular rate GI soft to palpation and non-tender; Negative for non-distended Palpation: Negative for guarding Extremity no clubbing, cyanosis or edema Skin no rashes or lesions noted Neuro CN's II-XII intact bilaterally Psych mental status grossly normal Assessment & Plan Assessment/Plan (1) Anemia: Surgery Risks - Colonoscopy I discussed with the patient the risks of the procedure: Yes Risks Include but are not Limited To: Plan for an EGD and colonoscopy risks include but are not limited to: Bleeding, perforation requiring further surgery, inability to complete colonoscopy requiring barium enema.
--- NOTE | 2024-02-29 09:13 | PCM.PRE.AN2 ---
ASA Classification* ASA Classification ASA Classification: 2 Assessment & Plan Anesthesia* Anesthesia Assessment Anesthesia Assessment: Discussed sedation and/or anesthesia options, risks, benefits, and alternatives with patient/parents/legal guardian/POA. Questions invited. The patient/parents/legal guardian/POA seems to understand and agrees to proceed with anesthesia plan. Reviewed the physical assessment, medical history, allergy history and patient home medications list prior to surgery/procedure/anesthetic and documented any changes. Performed airway and anesthesia risk assessments. Anesthesia Type Anesthesia Type: MAC Anesthesia Focused Assessment* Airway Assessment Mouth opens: >3 cm Mallampati Score: II Focused Labs Anesthesia Preop lab: CBC WBC 4.1 K/mm3 (4.4-11.0) L 11/11/23 10:55 RBC 3.94 M/mm3 (4.2-5.4) L 11/11/23 10:55 Hgb 11.8 g/dL (12.0-15.0) L 11/11/23 10:55 Hct 36.2 % (37-47) L 11/11/23 10:55 Plt Count 193 K/mm3 (150-450) 11/11/23 10:55 CHEMISTRY Potassium 4.2 mmol/L (3.5-5.1) 11/11/23 10:55 Sodium 137 mmol/L (136-145) 11/11/23 10:55 BUN 13 mg/dL (7-18) 11/11/23 10:55 Creatinine 0.85 mg/dL (0.55-1.02) 11/11/23 10:55 Glucose 91 mg/dL (74-106) 11/11/23 10:55 TSH 0.90 uIU/mL (0.358-3.74) 03/30/20 14:37 COAG Urine Test Negative Negative 05/09/21 12:05 Pre-Assessment Diagnosis/Proposed Procedure Planned Operative Procedure(s): EGD, CSCOPE Anesthesia History 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 When Was Last Pacemaker Check QUESTION #4 FULL TEXT: You/Your Family Experience fever (hyperthermia) with Anesthesia Last Oral Intake Last Oral intake: Last Oral Intake NPO since Meds taken in AM with sips of water? Meds patient instructed to take am of surgery PONV PONV - deputy county clerk: PONV - deputy county clerk Female Yes 02/25/24 12:34 HX of Motion Sickness Yes 02/25/24 12:34 HX of N/V After Surgery No 02/25/24 12:34 Non-Smoker Yes 02/25/24 12:34 Duration of Surgery greater No 02/25/24 12:34 than 60 minutes Number of Risk Factors 3 02/25/24 12:34 PONV Score Moderate Risk 02/25/24 12:34 Height & Weight Height & Weight: Anesthesia: Height & Weight Height 5 ft 6 in 02/19/24 15:13 Respiratory Assessment Respiratory Assessment - deputy county clerk: Respiratory Tract Infection Hx - deputy county clerk Hx Respiratory Tract Infection No 02/29/24 09:00 STOP Sleep Apnea STOP Sleep Apnea - deputy county clerk: STOP Sleep Apnea - deputy county clerk Hx Hypertension No 02/29/24 09:00 Hx Sleep Apnea No 02/29/24 09:00 CPAP No 02/29/24 09:00 BIPAP Do you snore loudly (louder No 02/29/24 09:00 than talking or can be heard Do you often feel tired/ No 02/29/24 09:00 fatigued/ sleepy during daytime? Has anyone observed you stop No 02/29/24 09:00 breathing during sleep? STOP Results Negative 02/29/24 09:01 QUESTION #5 FULL TEXT : Do you snore loudly (louder than talking or can be heard through closed doors)? 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 Specify any problems Hx of Preganancy in last 3 N/A 02/25/24 12:34 Months Nurse Filling Out Transfusion NBUCHER 02/25/24 12:34 & Questions: Date: 02/25/24 02/25/24 12:34 Time: 12:35 02/25/24 12:34 Patient unable to answer at this time (ie. confused, unrespo /Reproduction History /Reproductive History - deputy county clerk: /Reproductive Hx- deputy county clerk Hx Now No 02/29/24 09:00 Gestational Age (in weeks): EDC: Hx Hx Para Hx Section SAB No 02/25/24 12:34 Active Medications Active Medications: Current Medications Generic Name Dose Route Start Last Admin Trade Name Freq PRN Reason Stop Dose Admin Lactated Ringer's 1,000 mls @ 15 mls/hr 02/29/24 09:00 IV .Q48H CESARIO PFSH Medical History Abnormal ultrasound of breast Abnormal mammogram Anemia History of COVID-19 Umbilical hernia Non-smoker History of abnormal cervical Pap smear Bone fracture Home Medications ?Medication ?Instructions ?Recorded ?Last Taken ?Type NK 02/19/24 Unknown History Allergy/AdvReac Type Severity Reaction Status Date / Time bee venom protein (honey Allergy Intermediate PT UNSURE Verified 02/25/24 12:34 bee) (bees) OF REACTION erythromycin base Allergy pt states Verified 02/25/24 12:34 (Erythromycin Base) sun sensitivity Family History Mother No problems noted. Aunt Breast cancer Grandmother Breast cancer Surgical History History of wisdom tooth extraction S/P LASIK surgery Hx of breast surgery (~05/2021) History of wisdom tooth extraction, class I edentulism Social History Smoking Status: Never smoker alcohol intake: never substance use type: does not use seatbelt use: always additional social history: -[place] Review of Systems (Anesthesia) ROS Narrative System reviewed and no additional complaints, except as documented.
[2024-02-29] MEDS: Lactated Ringers 1,000 ML 15 ML IV (09:14)
--- NOTE | 2024-02-29 10:00 | COLBX_PTH ---
PATIENT: JULIO OG LOC: EN U#:[id number] AGE/SX: 43/F ROOM: RE02/29/[address]: Dr. Melvina Champagne MD : 1980 BED: DIS: 02/29/2024 SPEC #: [id number] RECD: 02/29/24 13:16 STATUS: IVELISSE TUAN #: [id number] MIGUEL ANGEL: 02/29/24 10:[address]: Melvina Champagne DEPT: SURGICAL PATHOLOGY RECD BY: Gianna Mchugh ENTERED: 02/29/24 13:37 SP TYPE: COLON BX DREW DR: Dr. Mickie Rossi MD Tissues: A - Transverse colon B - Descending colon Procedures: Surgery Specimen Level IV HEADER OPERATION: Colonoscopy with polypectomy and biopsy PRE-OP DIAGNOSIS: Anemia TISSUE SUBMITTED: A- Transverse colon polyp, B- Descending colon polyp biopsy MICROSCOPIC DIAGNOSIS A. Transverse colon polyp, biopsy: Fragments of hyperplastic polyp. B. Descending colon polyp, biopsy: Hyperplastic polyp. AM. 03/01/2024 COMMENT A. The biopsy contains portions of muscularis propria. Clinical correlation is suggested. Case is discussed with Dr. Champagne 03/01/[address] Weems. Case has been reviewed in consultation with Dr. Cardenas who concurs with the above diagnosis. IDC:REGINO MICROSCOPIC DESCRIPTION Slides are reviewed. GROSS DESCRIPTION A. Received in fixative is one container labeled with the patient's name and designated Transverse colon polyp. The specimen consists of a barragan-pink polyp measuring 1.0 x 0.9 x 0.5cm and also present in the container is a piece of barragan-pink soft tissue measuring in aggregate 1.0 x 0.2 x 0.2cm. The entire specimen is submitted in one cassette. B. Received in fixative is one container labeled with the patient's name and designated Descending colon polyp biopsy. The specimen consists of one irregular fragment of light barragan soft tissue that measures 0.3 x 0.3 x 0.1 cm. The specimen is totally submitted in one cassette. SJ.mr 02/29/2024 TC:5 CPT:54225t7
--- NOTE | 2024-02-29 10:55 | OP.CCLET_ITS ---
02/29/2024 Mickie Rossi [place] [id number] [address] Re : Upper GI endoscopy procedure for Clair Antunez Dear Dr. Rossi This procedure was performed on Thursday, February 29, 2024. My impressions and recommendations are as follows: Impressions : - Z-line regular, 40 cm from the incisors. - Normal examined duodenum. - Normal stomach. - No specimens collected. Recommendations : - Discharge patient to home. - Resume previous diet. - Continue present medications. My findings are described in the full procedure note, which is enclosed. If I can be of further assistance, please feel free to contact me at Doctor phone number(s): , Work: . Sincerely, MD Melvina Medel MD 02/29/2024 10:55:24 AM This report has been signed electronically.
--- NOTE | 2024-02-29 10:55 | OP.EGD_ITS ---
Patient Name: Clair Antunez Procedure Date: 02/29/2024 10:16 AM Date of : 1980 Age: 43 Procedure: Upper GI endoscopy Indications: Iron deficiency anemia Providers: Melvina Champagne MD Referring MD: Mickie Rossi Medicines: Monitored Anesthesia Care Patient Profile: This is a 43 year old female. Complications: No immediate complications. Procedure: Pre-Anesthesia Assessment: - Prior to the procedure, a History and Physical was performed, and patient medications and allergies were reviewed. The patient's tolerance of previous anesthesia was also reviewed. The risks and benefits of the procedure and the sedation options and risks were discussed with the patient. All questions were answered, and informed consent was obtained. Prior Anticoagulants: The patient has taken no anticoagulant or antiplatelet agents. ASA Grade Assessment: Per anesthesia. After reviewing the risks and benefits, the patient was deemed in satisfactory condition to undergo the procedure. After obtaining informed consent, the endoscope was passed under direct vision. Throughout the procedure, the patient's blood pressure, pulse, and oxygen saturations were monitored continuously. The colonoscope was introduced through the mouth, and advanced to the second part of duodenum. The upper GI endoscopy was accomplished without difficulty. The patient tolerated the procedure well. Scope In: 10:22:52 AM Scope Out: 10:26:09 AM Total Procedure Duration Time 0 hours 3 minutes 17 seconds Findings: The Z-line was regular and was found 40 cm from the incisors. The cardia and gastric fundus were normal on retroflexion. The examined duodenum was normal. The stomach was normal. Impression: - Z-line regular, 40 cm from the incisors. - Normal examined duodenum. - Normal stomach. - No specimens collected. Recommendation: - Discharge patient to home. - Resume previous diet. - Continue present medications. Procedure Code(s): --- Professional --- 75652, Esophagogastroduodenoscopy, flexible, transoral; diagnostic, including collection of specimen(s) by brushing or washing, when performed (separate procedure) Diagnosis Code(s): --- Professional --- D50.9, Iron deficiency anemia, unspecified CPT copyright 2021 [employer]. All rights reserved. The codes documented in this report are preliminary and upon ballpoint pen cartridge tester review may be revised to meet current compliance requirements. MD Melvina Medel MD 02/29/2024 10:55:24 AM This report has been signed electronically. Number of Addenda: 0 Note Initiated On: 02/29/2024 10:16 AM
--- NOTE | 2024-02-29 10:58 | PCM.POST.ANE ---
Anesthesia: Postop Eval I Current Vital Signs Temperature: 97.4 F Pulse Rate: 74 Blood Pressure: 92/58 Respiratory Rate: 16 Pulse Ox: 98 Oxygen Delivery Method: Room Air Assessment Airway patent: Yes Spontaneous unlabored respirations: Yes Mental status: Asleep nausea: No Vomiting: No Anesthesia Complication: No Fluid Hydration Crystalloid volume administer (ml): 800 Total IV fluid infused: 800 Progress Note Anesthesia document: Postop Eval 1 completed: Yes
--- NOTE | 2024-02-29 10:59 | OP.COLON_ITS ---
Patient Name: Clair Antunez Procedure Date: 02/29/2024 10:26 AM Date of : 1980 Age: 43 Procedure: Colonoscopy Indications: Iron deficiency anemia Providers: Melvina Champagne MD Referring MD: Mickie Rossi Medicines: Monitored Anesthesia Care Patient Profile: This is a 43 year old female. This is a 43 year old female. Last Colonoscopy: none. The patient's first colonoscopy is today. Complications: No immediate complications. Procedure: Pre-Anesthesia Assessment: - Prior to the procedure, a History and Physical was performed, and patient medications and allergies were reviewed. The patient's tolerance of previous anesthesia was also reviewed. The risks and benefits of the procedure and the sedation options and risks were discussed with the patient. All questions were answered, and informed consent was obtained. Prior Anticoagulants: The patient has taken no anticoagulant or antiplatelet agents. ASA Grade Assessment: Per anesthesia. After reviewing the risks and benefits, the patient was deemed in satisfactory condition to undergo the procedure. After I obtained informed consent, the scope was passed under direct vision. Throughout the procedure, the patient's blood pressure, pulse, and oxygen saturations were monitored continuously. The colonoscope was introduced through the anus and advanced to the terminal ileum. The colonoscopy was performed without difficulty. The patient tolerated the procedure well. The quality of the bowel preparation was good. Scope In: 10:27:36 AM Scope Withdrawal Time 0 hours 17 minutes 6 seconds Scope Out: 10:50:46 AM Total Procedure Duration Time 0 hours 23 minutes 10 seconds Findings: The perianal and digital rectal examinations were normal. A 7 mm polyp was found in the transverse colon. The polyp was sessile. The polyp was removed with a piecemeal technique using a hot snare. Resection and retrieval were complete. A less than 5 mm polyp was found in the descending colon. The polyp was sessile. The polyp was removed with a cold biopsy forceps. Resection and retrieval were complete. The exam was otherwise without abnormality on direct and retroflexion views. Impression: - One 7 mm polyp in the transverse colon, removed piecemeal using a hot snare. Resected and retrieved. - One less than 5 mm polyp in the descending colon, removed with a cold biopsy forceps. Resected and retrieved. - The examination was otherwise normal on direct and retroflexion views. Recommendation: - Discharge patient to home. - Resume previous diet. - Continue present medications. - Await pathology results. - Repeat colonoscopy in 3 - 5 years for surveillance based on pathology results. Procedure Code(s): --- Professional --- 15139, PT, Colonoscopy, flexible; with removal of tumor(s), polyp(s), or other lesion(s) by snare technique 37950, 59, Colonoscopy, flexible; with biopsy, single or multiple Diagnosis Code(s): --- Professional --- D12.3, Benign neoplasm of transverse colon (hepatic flexure or splenic flexure) D12.4, Benign neoplasm of descending colon D50.9, Iron deficiency anemia, unspecified CPT copyright 2021 [place] [employer] [employer]. All rights reserved. The codes documented in this report are preliminary and upon marketing intelligence analyst review may be revised to meet current compliance requirements. MD Melvina Medel MD 02/29/2024 10:58:42 AM This report has been signed electronically. Number of Addenda: 0 Note Initiated On: 02/29/2024 10:26 AM
--- NOTE | 2024-02-29 10:59 | OP.CCLET_ITS ---
02/29/2024 Mickie Rossi [place] [id number] [address] Re : Colonoscopy procedure for Clair Harmony Dear Dr. Rossi This procedure was performed on Thursday, February 29, 2024. My impressions and recommendations are as follows: Impressions : - One 7 mm polyp in the transverse colon, removed piecemeal using a hot snare. Resected and retrieved. - One less than 5 mm polyp in the descending colon, removed with a cold biopsy forceps. Resected and retrieved. - The examination was otherwise normal on direct and retroflexion views. Recommendations : - Discharge patient to home. - Resume previous diet. - Continue present medications. - Await pathology results. - Repeat colonoscopy in 3 - 5 years for surveillance based on pathology results. My findings are described in the full procedure note, which is enclosed. If I can be of further assistance, please feel free to contact me at Doctor phone number(s): , Work: . Sincerely, MD Melvina Medel MD 02/29/2024 10:58:42 AM This report has been signed electronically.
--- NOTE | 2024-02-29 11:11 | PCM.POSTANE2 ---
Anesthesia Postop Eval I Sum Postop Eval Completion status Anesthesia document: Postop Eval 1 completed: Yes Anesthesia Postop Eval I Summary Anesthesia Postop Eval I Summary: Anesthesia Postop Eval I: Assessment Summary Airway patent Yes 02/29/24 10:59 [email or web address] Spontaneous unlabored Yes 02/29/24 10:59 [email or web address] respirations Mental status Asleep 02/29/24 10:59 [email or web address] nausea No 02/29/24 10:59 [email or web address] Vomiting No 02/29/24 10:59 [email or web address] Anesthesia Postop Eval I: Fluid Summary Crystalloid volume administer 800 02/29/24 10:59 [email or web address] (ml) Colloids volume administered ( ml) Blood Product volume administered (ml) Total IV fluid infused 800 02/29/24 10:59 [email or web address] Anesthesia Postop Eval I: Summary Notes Anesthesia Complication No 02/29/24 10:59 [email or web address] Anesthesia Complication Comment: Post-operative progress note Anesthesia: Postop Eval II Evaluation Mental status: Awake Pain Level: 0 nausea: No Vomiting: No
== END 2024-02-29 11:58 | disposition home or self-care (01) ==
LOC: EN 08:52 → AC 08:52
PROVIDERS: PCP Family Medicine; Referring Provider Family Medicine; Visit Provider Surgery
PROC: 0DJD8ZZ Inspection of Lower Intestinal Tract, Via Natural or Artificial Opening Endoscopic (ICD-10-PCS; CPT 45378; principal; 2024-02-29 09:55)
DX: D50.9 Iron deficiency anemia, unspecified (principal); K63.5 Polyp of colon
CPT/HCPCS: 45380; 45385; 43235; 88305; J7120; J2405

== ENCOUNTER → 2025-02-22 | Outpatient (CLI) | payer OTHER, SELFPAY ==
--- NOTE | 2025-02-22 10:19 | RAD_ITS ---
PROCEDURE: CHEST PA AND LATERAL 02/22/2025 REASON FOR EXAM: CHEST PAIN TECHNIQUE: Procedure Code: RADCXR Modality: DX Procedure: CHEST PA AND LATERAL FINDINGS: No focal consolidation. No pleural effusion or pneumothorax. Cardiac silhouette is within normal limits. No acute fractures. RAD/Chest PA and Lateral IMPRESSION: No focal consolidations. Reading Location: [id number]
[2025-02-22 12:28] LABS: Hematocrit 37.1 % (37-47); Hemoglobin 12.6 g/dL (12.0-15.0); Immature Granulocytes Count 0.010 X10^3/uL (0.0-0.0); Mean Corp Hgb Conc 34.0 g/dL (32-36); Mean Corpuscular Volume 90.7 fL (81-99); Mean Platelet Vol. 11.5 fl (6.2-12.0); NRBC Flagged by Analyzer 0 % (0-5); Platelet Count 203 K/mm3 (150-450); RBC Distribution Width CV 12.4 % (11.6-14.6); RBC Distribution Width SD 41.1 fl (35.1-43.9); Red Blood Count 4.09 M/mm3 (4.2-5.4); White Blood Count 6.1 K/mm3 (4.4-11.0)
[2025-02-22 12:55] LABS: AST(SGOT) 21 U/L (<=31); Alanine Aminotransfer ALT/SGPT 13 U/L (<=34); Albumin, Serum 4.5 g/dL (3.5-5.0); Alkaline Phosphatase 43 U/L (35-104); Anion Gap 11 (5-15); BUN 15 mg/dL (4-19); BUN/Creat Ratio 16.4 RATIO (10-20); Calcium,Total 9.3 mg/dL (7.6-11.0); Carbon Dioxide 23.0 mmol/L (21.0-32.0); Chloride 103 mmol/L (98-108); Ferritin 82 ng/mL (22-378); Globulin 2.5 g/dL (2.2-4.2); Glucose 90 mg/dL (70-99); Potassium 3.8 mmol/L (3.3-5.1)
== END | disposition home or self-care (01) ==
LOC: MTLAB 10:18
PROVIDERS: PCP Family Medicine; Referring Provider Family Medicine; Visit Provider Family Medicine
DX: R07.9 Chest pain, unspecified (principal); D64.9 Anemia, unspecified
CPT/HCPCS: 36415; 71046; 80053; 82728; 85025

== ENCOUNTER → 2025-04-03 | Outpatient (CLI) | payer OTHER, SELFPAY ==
--- NOTE | 2025-04-03 08:15 | BI_ITS ---
EXAM: BI/SCRN MAMM (CAD)W/HENRIK BILAT
[2025-04-11 14:09] LABS: HPV APTIMA, High Risk Negative (Negative)
== END | disposition home or self-care (01) ==
PROVIDERS: PCP Family Medicine; Referring Provider Obstetrics & Gynecology; Visit Provider Obstetrics & Gynecology
DX: Z12.31 Encounter for screening mammogram for malignant neoplasm of breast (principal); Z12.4 Encounter for screening for malignant neoplasm of cervix
CPT/HCPCS: 77063; 77067; 87624; 88175; G0145

== ENCOUNTER → 2025-04-07 | Outpatient (CLI) | payer OTHER, SELFPAY ==
--- NOTE | 2025-04-07 13:06 | US_ITS ---
EXAM: DIAG MAMM W/CAD, BILAT; BREAST LIMITED UNILATERAL; BILAT BRST HENRIK STAND ALONE 04/07/2025 CLINICAL HISTORY: F, Age 45 y/o , BILAT MASSES; MASS; ABN MAMM TECHNIQUE: Procedure Code: BIDMWCADB; USBRSTLIMIT; BIBILATBRTOM Modality: MG; US Procedure: DIAG MAMM W/CAD, BILAT; BREAST LIMITED UNILATERAL; BILAT BRST HENRIK STAND ALONE. COMPARISON: Prior exam(s) dated 04/03/2025, 02/15/2024, 03/12/2023, 03/06/2022. FINDINGS: MAMMOGRAM: TISSUE DENSITY: The breasts are extremely dense, which lowers the sensitivity of mammography. Bilateral Breast Mammographic Findings: Follow-up examination performed for the bilateral masses seen on examination of 04/03/2025. On the present examination, there are multiple bilateral circumscribed masses of varying sizes scattered throughout the bilateral breast. ULTRASOUND: Ultrasound performed of all 4 quadrants of the bilateral breast demonstrate multiple cysts and cyst clusters. The largest cyst on the left is at 10 o'clock 4 cm from the nipple measuring 2.2 x 0.9 x 1.7 cm. The largest cyst on the right is at 2 o'clock 4 cm from the nipple measuring 2.1 x 0.8 x 2.0 cm. US/Breast Limited Unilateral IMPRESSION: Benign bilateral breast cysts. OVERALL FINAL ASSESSMENT BI-RADS 2: BENIGN RECOMMENDATION: Routine annual follow-up in 1 Year Additional Recommendation none A letter with findings and recommendations will be mailed to the patient. Reading Location: [id number]
--- NOTE | 2025-04-07 13:24 | BI_ITS ---
EXAM: DIAG MAMM W/CAD, BILAT; BREAST LIMITED UNILATERAL; BILAT BRST HENRIK STAND ALONE 04/07/2025 CLINICAL HISTORY: F, Age 45 y/o , BILAT MASSES; MASS; ABN MAMM TECHNIQUE: Procedure Code: BIDMWCADB; USBRSTLIMIT; BIBILATBRTOM Modality: MG; US Procedure: DIAG MAMM W/CAD, BILAT; BREAST LIMITED UNILATERAL; BILAT BRST HENRIK STAND ALONE. COMPARISON: Prior exam(s) dated 04/03/2025, 02/15/2024, 03/12/2023, 03/06/2022. FINDINGS: MAMMOGRAM: TISSUE DENSITY: The breasts are extremely dense, which lowers the sensitivity of mammography. Bilateral Breast Mammographic Findings: Follow-up examination performed for the bilateral masses seen on examination of 04/03/2025. On the present examination, there are multiple bilateral circumscribed masses of varying sizes scattered throughout the bilateral breast. ULTRASOUND: Ultrasound performed of all 4 quadrants of the bilateral breast demonstrate multiple cysts and cyst clusters. The largest cyst on the left is at 10 o'clock 4 cm from the nipple measuring 2.2 x 0.9 x 1.7 cm. The largest cyst on the right is at 2 o'clock 4 cm from the nipple measuring 2.1 x 0.8 x 2.0 cm. BI/Bilat Brst Henrik Stand Alone IMPRESSION: Benign bilateral breast cysts. OVERALL FINAL ASSESSMENT BI-RADS 2: BENIGN RECOMMENDATION: Routine annual follow-up in 1 Year Additional Recommendation none A letter with findings and recommendations will be mailed to the patient. Reading Location: [id number]
== END | disposition home or self-care (01) ==
LOC: OPBI 13:04
PROVIDERS: PCP Family Medicine; Referring Provider Obstetrics & Gynecology; Visit Provider Obstetrics & Gynecology
DX: N60.01 Solitary cyst of right breast (principal); N60.02 Solitary cyst of left breast
CPT/HCPCS: 76642; 77062; 77066; G0279